=== PATIENT | female | born 1945 | race Two or more races ===

== ENCOUNTER 2021-10-21 08:44 | Inpatient (IN) | payer OTHER ==
[~2021-10-21] VITALS: Ht 152.4 cm; Wt 65.3 kg
== END 2021-10-31 14:06 | disposition home or self-care (01) | DRG 330 ==
LOC: SURH 08:44
PROVIDERS: ADMIT Colon & Rectal Surgery; ATTEND Colon & Rectal Surgery
PROC: 30233N1 Transfusion of Nonautologous Red Blood Cells into Peripheral Vein, Percutaneous Approach (ICD-10-PCS; 2021-10-21)
PROC: 0DBL4ZZ Excision of Transverse Colon, Percutaneous Endoscopic Approach (ICD-10-PCS; 2021-10-26)
PROC: 07BB4ZZ Excision of Mesenteric Lymphatic, Percutaneous Endoscopic Approach (ICD-10-PCS; 2021-10-26)
PROC: 0DTF4ZZ Resection of Right Large Intestine, Percutaneous Endoscopic Approach (ICD-10-PCS; principal; 2021-10-26 07:00)
DX: C18.2 Malignant neoplasm of ascending colon (principal); K62.5 Hemorrhage of anus and rectum; D50.9 Iron deficiency anemia, unspecified; E11.65 Type 2 diabetes mellitus with hyperglycemia; Z79.4 Long term (current) use of insulin; E03.9 Hypothyroidism, unspecified; K74.60 Unspecified cirrhosis of liver; I11.9 Hypertensive heart disease without heart failure; Z20.822 Contact with and (suspected) exposure to COVID-19